=== PATIENT | male | born 1935 | race Caucasian/White ===

== ENCOUNTER 2017-08-24 04:23 | Inpatient (IN) | payer MEDICARE, OTHER ==
[~2017-08-24] VITALS: Ht 165.1 cm; Wt 74.6 kg
[2017-08-24] VITALS (18 sets, daily range): BP systolic 93–137; BP diastolic 52–80; BMI 29.9
--- NOTE | ~2017-08-24 | CN ---
PATIENT NAME:JENNIFER BRODERICK MEDICAL RECORD: [id number] : 31 LOCATION:[facility].2313 ADMIT DATE: 08/24/17 ACCOUNT: [id number] CONSULTING PHYSICIAN: ISRAEL CORDERO MD REFERRING PHYSICIAN: ANDI SUN DO DATE OF CONSULTATION: 08/24/2017 DIAGNOSES: 1. Non-Q-wave myocardial infarction. 2. Coronary artery disease. 3. Respiratory failure. 4. Pneumonia. 5. Chronic obstructive pulmonary disease. HISTORY OF PRESENT ILLNESS: Mr. Broderick presents with shortness of breath, dyspnea on exertion, found to have bilateral infiltrates. He does have a history of COPD. He has no cardiac history. His troponin was elevated at 0.47. Echocardiogram revealed cardiomyopathy, ejection fraction in the 40% range. PHYSICAL EXAMINATION: GENERAL APPEARANCE: Well-nourished, well-developed, appears stated age. Level of distress, comfortable. PSYCHIATRIC: Mental status, alert, normal affect. Orientation, oriented to time, place and person. EYES: Lids and conjunctiva, noninjected. No discharge, no pallor. ENT: Lips, teeth, gums, normal dentition. Oropharynx, no cyanosis, no pallor. NECK: Carotid arteries, bilateral normal upstroke, no bruits, no thrills. JUGULAR VEINS: No jugular venous pressure or distention. CERVICAL LYMPH NODES: Nontender, nonenlarged. THYROID: Not enlarged. Nontender. No nodules. LUNGS: Respiratory effort, unlabored. CHEST: Normal curvature. No thoracic deformity. No chest wall tenderness. Percussion, resonant. Auscultation, clear. No wheezes, no rales, no rhonchi. CARDIOVASCULAR: Precordial exam, nondisplaced. No heaves or pericardial thrills. Rate and rhythm, regular. Heart sounds, normal S1, normal S2. No S3, no gallop, no rub. Systolic murmur, not heard. Diastolic murmur, not heard. EXTREMITIES: No cyanosis, no edema. Peripheral pulses, full and equal in all extremities, except as noted. No bruits appreciated. ABDOMEN: Soft, nondistended. Normal aorta. No bruit. Nontender. No masses. Liver, nontender, no hepatomegaly. Spleen, nontender, no splenomegaly. MUSCULOSKELETAL: No joint tenderness. No joint swelling. No erythema. NEUROLOGICAL: Normal gait, normal strength, normal tone. SKIN: Warm and dry. OVERALL IMPRESSION: Non-Q-wave myocardial infarction with a cardiomyopathy, most likely he has hemodynamically significant coronary artery disease. We will proceed with coronary angiography, but only after stabilized from respiratory standpoint. We will start Bystolic, Pravachol, aspirin, and Plavix at this point to treat medically for the myocardial infarction. TRANSINT:[id number] Voice Confirmation ID: [id number] DOCUMENT ID: [id number] CONSULT REPORT [id number] JENNIFER BRODERICK JEFFREY MD at 1006 CC: [id number] DICTATION DATE: 08/24/17 1201 FLAME ANNEALING MACHINE SETTER: 08/24/17 1212 ADM IN [facility] [address] [place] [address]
--- NOTE | ~2017-08-24 | OP ---
PATIENT NAME: JENNIFER BRODERICK MEDICAL RECORD: [id number] :31 LOCATION:.[facility] D.2313 ADMISSION DATE:08/24/17 SURGEON: ISRAEL CORDERO MD DATE OF OPERATION: 08/26/2017 PROCEDURES: 1. PTCA stent LAD. 2. Left heart catheterization. 3. Selective coronary angiography. 4. Left ventriculogram. INDICATION: Angina and coronary artery disease. PROCEDURE IN DETAIL: After informed consent was obtained and after detailed explanation of risks, benefits as well as alternative therapies, the patient elected to proceed with angiogram and angioplasty. The right radial area was prepped and draped in normal sterile fashion. Right radial artery was cannulated via modified Seldinger technique with placement of 6-Uruguayan sheath. FINDINGS: The left ventriculogram was performed in standard 30-degree STEVE view, reveals good cardiac wall motion throughout all segments. Overall ejection fraction is estimated at 60%. SELECTIVE CORONARY ANGIOGRAPHY: 1. Left main has no significant angiographic disease. 2. Left anterior descending has long area of 80% stenosis throughout the mid vessel. 3. Left circumflex has moderate diffuse disease, but no discrete flow-limiting stenosis. 4. Right coronary has a long area of 90+ percent stenosis throughout the mid. PTCA STENT OF THE LAD: The stent used was a 2.25 x 38 mm Sotero. Result was 0% residual stenosis. OVERALL IMPRESSION: Successful percutaneous transluminal angioplasty stent of the left anterior descending going from 80+ percent initial stenosis to 0% residual. PLAN: For PTCA stent of the RCA in the near future. TRANSINT:[id number] Voice Confirmation ID: [id number] DOCUMENT ID: [id number] ISRAEL CORDERO MD at 1006 CC: [id number] DICTATION DATE: 08/26/17 1559 DEVELOPMENT ADMINISTRATOR: 08/26/17 1620 ADM IN [place] [id number] [place] [address]
--- NOTE | ~2017-08-24 | HEMODYNAMI ---
PATIENT:JENNIFER BRODERICK MEDICAL RECORD: [id number] : 31 LOC[id number] ADMISSION DATE: 08/24/17 Generatedon:08/26/201716:04 Patient name: JENNIFER BRODERICK Patient #: [id number] SSN: : Date of study: 08/26/2017 Page: Of Hemodynamic Procedure Report Patient Data Patient Demographics Procedure consent was obtained First Name: JENNIFER Gender: Male Last Name: DAVIE : 1935 Patient #: [id number] Age: 81 year(s) Race: Unknown Additional ID: [id number] Contact details [address]: [address] [place] [address] State: [place] City: [place] Zip code: [address] Admission Admission Data Admission Date: 08/24/2017 Admission Time: 6:54 Room #: D.2313 Height (in.): 64.96 BSA: 1.86 (m2) Height (cm.): 165 BMI: 29.02 (kg/m2) Weight (lbs.): 174.17 Weight (kg.): 79 Lab Results Lab Result Date: 08/26/2017 Lab Result Time: 0:00 Biochemistry Name Units Result Min Max BUN mg/dl 29 --(----)-* 7 18 Creatinine mg/dl 1.2 --(---*)-- 0.6 1.3 CBC Name Units Result Min Max Hemoglobin g/dl 10.3 *-(----)-- 13.5 17.5 Procedure Procedure Types Cath Procedure Diagnostic Procedure LHC LHC w/Coronaries Sedation Charges Moderate Sedation up to 15 minutes PCI Procedure Coronary Stent Coronary Stent Initial Procedure Description Procedure Date Procedure Date: 08/26/2017 Procedure Start Time: 15:39 Procedure End Time: 15:57 Procedure Staff Name Function Dwayne Morales MD Performing Physician Britney Duncan RT Monitor Zoë Gonzales RT Scrub Dieter Jeffries RN Nurse Nichole Rodriguez RN Nurse Procedure Data Cath Procedure Fluoroscopy Diagnostic fluoroscopy Total fluoroscopy Time: 4.1 time: 4.1 min min Diagnostic fluoroscopy Total fluoroscopy dose: 351 dose: 351 mGy mGy Contrast Material Contrast Material Type Amount (ml) Isovue 300 73 Entry Location Entry Primary Successful Side Size Upsize Upsize Entry Closure Rachel ccessful Closure Location (Fr) 1 (Fr) 2 (Fr) Remarks Device Remarks Radial Right 6 Fr Mechanical artery Short Compression Estimated blood loss: 5 ml Diagnostic catheters Device Type Used For End Catheter Placement DIAGNOSTIC [place] 110cm 5 Multi-vessel Fr catheter ([id number]) Angiography Procedure Complications No complications Procedure Medications Medication Administration Route Dosage Oxygen etCO2 Nasal cannula 2 l/min Heparin Flush Bag added to field 2 bags (1000units/500ml NS) 0.9% NaCl I.V. 100 ml/hr Radial Cocktail added to field 1 syringe (Verapomil 2mg/Nitro 400mcg/Heparin 1500units) Fentanyl I.V. 50 mcg Versed I.V. 1 mg Fentanyl I.V. 50 mcg Versed I.V. 1 mg Heparin Bolus I.V. 4000 units Plavix P.O. 75 mg Hemodynamics Rest BSA: 1.86 (m2) O2 Consumption: Estimated: 231.85 (ml/min) O2 Consumption indexed : Estimated:124.65 (ml/min/m) Heart Rate: 99 (bpm) Pressure Samples Time Site Value (mmHg) Purpose Heart Use Rate(bpm) 15:44 LV 2/2,-29 Snapshot 46 Snapshots Pre Cath Intra NCS Post Cath Vital Signs Time Heart Resp SPO2 etCO2 NIBP Rhythm Pain Sedation Rate (ipm) (%) (mmHg) (mmHg) Status Level (bpm) 15:28:42 89 16 0 113/83(91) NSR 0 (11) 10(A) , No pain 15:32:46 82 17 90 0 97/65(79) NSR 0 (11) 10(A) , No pain 15:36:54 88 17 91 0 92/60(76) NSR 0 (11) 10(A) , No pain 15:41:00 91 17 92 0 89/60(77) NSR 0 (11) 9(A) , No pain 15:45:06 94 16 91 0 79/55(69) NSR 0 (11) 9(A) , No pain 15:49:05 104 16 90 0 80/57(69) NSR 0 (11) 9(A) , No pain 15:53:46 109 16 92 0 118/74(94) NSR 0 (11) 9(A) , No pain 15:57:52 96 16 91 0 112/71(92) NSR 0 (11) 10(A) , No pain Medications Time Medication Route Dose Verified Delivered Reason Not es Effectiveness by by 15:24:02 Oxygen etCO2 2 l/min Dwayne Garcias Per physician Nasal Andrew Jeffries RN cannula 15:24:12 Heparin Flush added 2 bags Dwayne Garcias used for Bag to Andrew Jeffries RN procedure (1000units/500ml field NS) 15:24:22 0.9% NaCl I.V. 100 Dwayne Garcias Per physician ml/hr Andrew Jeffries RN 15:24:33 Radial Cocktail added 1 Dwayne Garcias used for (Verapomil to syringe Andrew Jeffries RN procedure 2mg/Nitro field 400mcg/Heparin 1500units) 15:40:22 Fentanyl I.V. 50 mcg Dwayne Garcias for sedation Andrew Jeffries RN 15:40:29 Versed I.V. 1 mg Dwayne Garcias for sedation Andrew Jeffries RN 15:51:11 Fentanyl I.V. 50 mcg Dwayne Garcias for sedation Andrew Jeffries RN 15:51:16 Versed I.V. 1 mg Dwayne Garcias for sedation Andrew Jeffries RN 15:51:25 Heparin Bolus I.V. 4000 Dwayne Garcias for units Andrew Jeffries RN anticoagulation 15:55:55 Plavix P.O. 75 mg Dwayne Garcias for Andrew Jeffries RN antiplatelet therapy Procedure Log Time Note 14:53:55 Patient Height : 64.96 inches 14:53:58 Patient Weight : 174.17 lbs 14:54:34 Lab Result : Hemoglobin 10.3 g/dl 14:54:34 Lab Result : Creatinine 1.2 mg/dl 14:54:34 Lab Result : BUN 29 mg/dl 14:55:35 Diagnostic Cath status Elective 14:55:37 Britney CROW(R) sent for patient. Start room use. 14:55:38 Time tracking: Regular hours (M-F 7:00 - 5:00) 14:55:43 Plan of Care:Hemodynamics will remain stable., Cardiac rhythm will remain stable., Comfort level will be maintained., Respiratory function will remain adequate., Patient/ family verbilizes understanding of procedure., Procedure tolerated without complication., Recovers from procedure without complications.. 15:24:02 Oxygen 2 l/min etCO2 Nasal cannula was administered by Dieter Jeffries RN; Per physician; 15:24:12 Heparin Flush Bag (1000units/500ml NS) 2 bags added to field was administered by Dieter Jeffries RN; used for procedure; 15:24:22 0.9% NaCl 100 ml/hr I.V. was administered by Dieter Jeffries RN; Per physician; 15:24:33 Radial Cocktail (Verapomil 2mg/Nitro 400mcg/Heparin 1500units) 1 syringe added to field was administered by Dieter Jeffries RN; used for procedure; 15:27:17 Vital chart was started 15:34:34 Patient received from ICU to [facility] 3 Alert and oriented. Tansferred to table in Supine position. 15:34:35 Warm blankets applied, and henok hugger turned on for patient comfort. 15:34:36 Correct patient and procedure confirmed by team. 15:34:37 Signed procedure consent form obtained from patient. 15:34:38 ECG and BP/O2 sat monitors applied to patient. 15:34:45 Rhythm: sinus rhythm 15:34:46 Full Disclosure recording started 15:34:53 H&P Date Dictated: 08/26/2017 New H&P dictated by physician.. 15:34:54 Pre-procedure instructions explained to patient. 15:34:55 Pre-op teaching completed and patient verbalized understanding. 15:37:20 Family in waiting room. 15:37:21 Patient NPO since Midnight. 15:37:24 Is the patient allergic to Iodine/contrast media? No. 15:37:25 Was the patient premedicated? No 15:37:26 Is patient on blood thinner?Yes 15:37:30 ACC The patient was administered the following blood thiners within the last 24 hours: ACCPlavix 15:37:32 Patient diabetic? No. 15:37:35 Previous problem with sedation/anesthesia? No ? 15:37:37 Snore? Yes 15:37:38 Sleep apnea? Yes 15:37:39 Deviated septum? No 15:37:41 Opens mouth fully? Yes 15:37:42 Sticks out tongue? Yes 15:37:57 Airway obstruction? Yes pneumonia 15:38:00 Dentures? No ? 15:38:03 Pre procedure: right dorsailis pedis pulse 1+ Palpable, but thready & weak; easily obliterated 15:38:05 Pre procedure: left dorsailis pedis pulse 1+ Palpable, but thready & weak; easily obliterated 15:38:07 Patient pain scale 0/10 ?. 15:38:14 IV patent on arrival in left forearm with 0.9% NaCl at [facility]. 15:38:28 Lab results completed and on chart. 15:38:32 Right Radial & Right Groin area was prepped with chlora-prep and draped in sterile fashion 15:38:33 Alarms reviewed by R. N. 15:38:33 Sharps counted by scrub and verified by R.N. 15:38:35 Physician arrived 15:38:36 --------ALL STOP TIME OUT------ 15:38:36 Final Timeout: patient, procedure, and site verified with staff and physician. All members of the team are in agreement. 15:38:38 Right Radial & Right Groin site verified by team. 15:38:40 Physical assessment completed. ASA score P 2 - A patient with mild systemic disease as per Dwayne Morales MD. 15:38:43 Sedation plan: IV Moderate Sedation Medication:Versed, Fentanyl 15:38:48 Use device set Radial Dx or PCI 15:38:49 ACIST Syringe (26782) opened to sterile field. 15:38:50 Medline Cath Pack ([id number]) opened to sterile field. 15:38:50 Bag Decanter () opened to sterile field. 15:38:50 DIAGNOSTIC WIRE .035 260cm J wire (416751) opened to sterile field. 15:38:51 ACIST Hand Control (73103) opened to sterile field. 15:38:51 ACIST Manifold (34683) opened to sterile field. 15:38:52 Tegaderm 4 x 4 (1626W) opened to sterile field. 15:38:52 MBrace Wrist Support ([id number]) opened to sterile field. 15:38:53 SHEATH 6Fr Prelude Radial ([id number]) opened to sterile field. 15:38:58 Procedure started. 15:39:02 Local anesthetic to right radial artery with Lidocaine 2% by Dwayne Morales MD.INITIAL ACCESS ONLY 15:39:15 A 6 Fr Short sheath was inserted into the Right Radial artery 15:40:22 Fentanyl 50 mcg I.V. was administered by Dieter Jeffries RN; for sedation; 15:40:29 Versed 1 mg I.V. was administered by Dieter Jeffries RN; for sedation; 15:42:51 Baseline sample Acquired. 15:42:56 Zero performed for pressure channel P1 15:44:14 A DIAGNOSTIC [place] 110cm 5 Fr catheter ([id number]) was advanced over the wire and used for Multi-vessel Angiography. 15:44:49 LV hemodynamics recorded. 15:44:50 LV gram done using STEEV 15:44:53 Injector settings: Ml/sec: 5, Volume: 15, 15:45:06 EF : 55 % 15:45:17 RCA angiography performed. 15:45:21 Injector settings: Ml/sec: 3, Volume: 6, 15:46:03 Catheter removed. 15:46:12 GUIDE 6FR XBLAD 3.5 catheter ([id number]) opened to sterile field. 15:47:31 LCA angiography performed. 15:47:34 Injector settings: Ml/sec: 3, Volume: 6, 15:50:24 Catheter removed. 15:50:57 INFLATOR Merit BasixCompak (BJ0191) opened to sterile field. 15:50:58 CHOICE PT Extra Support 182cm wire ([id number]) opened to sterile field. 15:51:11 Fentanyl 50 mcg I.V. was administered by Dieter Jeffries RN; for sedation; 15:51:16 Versed 1 mg I.V. was administered by Dieter Jeffries RN; for sedation; 15:51:25 Heparin Bolus 4000 units I.V. was administered by Dieter Jeffries RN; for anticoagulation; 15:52:15 Proceeding to intervention. 15:52:25 choice pt wire advanced. 15:52:27 Wire advanced across lesion. 15:53:44 Place stent Inflation Number: 1 A JHON RX 2.25 x 38 stent ([id number]) was prepped and advanced across the Mid LAD. The stent was deployed at 14 RADHA for 0:10 (min:sec). 15:54:06 Stent catheter was removed intact over wire. 15:54:08 Wire removed. 15:54:08 Guide catheter removed. 15:55:09 TR BAND Standard ([id number]) opened to sterile field. 15:55:27 Sheath removed intact; hemostasis achieved with Mechanical Compression to the Right Radial artery. 15:55:29 Procedure ended.(Physican Out) 15:55:40 Fluoroscopy time 04.10 minutes. 15:55:45 Fluoroscopy dose: 351 mGy 15:55:45 Flurop Dose total: 351 15:55:55 Plavix 75 mg P.O. was administered by Dieter Jeffries RN; for antiplatelet therapy; 15:56:15 Contrast amount:Isovue 300 73ml. 15:56:17 Sharps counted by scrub and verified by R.N. 15:56:18 Insertion/operative site no bleeding no hematoma. 15:56:24 Post right radial artery:stable 15:56:26 Post Procedure Pulses reassessed and unchanged 15:56:29 Post procedure rhythm: unchanged. 15:56:35 Estimated blood loss: 5 ml 15:56:43 Post procedure instruction explained to patient.Patient verbalizes understanding. 15:56:44 Patient needs reinforcement of post procedure teaching. 15:57:08 Procedure type changed to Cath procedure, Diagnostic procedure, LHC, LHC w/Coronaries, Sedation Charges, Moderate Sedation up to 15 minutes, PCI procedure, Coronary Stent, Coronary Stent Initial 15:57:09 Procedure and supply charges have been captured, reviewed, submitted and are correct. 15:57:13 Procedure Complication : No complications 15:57:15 Vital chart was stopped 15:57:16 See physician's report for complete and final results. 15:57:53 Report given to ICU. 15:57:56 Patient transfered to ICU with Stretcher. 15:57:58 Procedure ended. 15:57:58 Full Disclosure recording stopped 15:58:31 ACC-PCI Only Patient was given prescriptions, or instructed by Dwayne Morales MD to start/continue the following medications upon discharge: Plavix 15:58:33 End room use (Document Last) Intervention Summary Intervention Notes Time ActionType Lesion and Equipment Used Action# Pressure Duration Attributes 15:53:44 Place stent Mid LAD JHON RX 2.25 x 1 14 00:10 38 stent ([id number]) Device Usage Item Name Manufacture Quantity Catalog Number Hospital Part Current Minimal Lot# / Charge Number Stock Stock Serial# Code ACIST Syringe Acist 1 55901 542377 238887 197407 20 (89984) Medical Systems Inc Medline Cath Cardinal 1 [id number] 231422 52204 993846 5 Pack Health ([id number]) Bag Decanter Microtek 1 2001S 704051 05771 692355 5 (2001S) Medical Inc. DIAGNOSTIC WIRE [address] [place] 1 918519 981876 539060 318865 30 .035 260cm J wire (021944) ACIST Hand Acist 1 24623 707655 574049 187217 5 Control (64016) Medical Systems Inc ACIST Manifold Acist 1 72857 127463 882353 485719 5 (19429) Medical Systems Inc Tegaderm 4 x 4 3M 1 1626W 518986 341258 322237 5 (1626W) MBrace Wrist Advanced 1 140-0250-00 334116 19185 397407 5 Support Vascular ([id number]) Dynamics SHEATH 6Fr Merit 1 [id number] 578021 508135 514260 5 Prelude Radial Medical ([id number]) DIAGNOSTIC Terumo 1 40-4583 516531 999874 024146 5 [place] 110cm 5 Fr catheter (848857) GUIDE 6FR XBLAD Cardinal 1 [id number] 174268 528475 083233 10 3.5 catheter Health (54001749) INFLATOR Merit Merit 1 [id number] 452815 011661 721317 [address] Medical (IT5353) CHOICE PT Extra [place] 1 [id number] 870354 378808 575902 5 Support 182cm Scientific wire ([id number]) JHON RX 2.25 x Medtronic 1 [id number] 182781 4116232 068491 5 [id number] 38 stent ([id number]) TR BAND Terumo 1 [id number] 769103 952633 756822 40 Standard ([id number]) Signature Audit [place] Stage Time Signature Unsigned Intra-Procedure 08/26/2017 Zoë Gonzales 4:04:43 PM RT(R) Signatures Monitor : Britney Duncan Signature : RT Date : Time : [facility] [address] [place] [address]
--- NOTE | ~2017-08-24 | EC ---
PATIENT:JENNIFER BRODERICK DATE OF SERVICE: 08/24/17 SEX: M MEDICAL RECORD: [id number] DATE OF : 31 LOCATION:[facility] AGE OF PATIENT: 81 ADMISSION DATE: 08/24/17 REFERRING PHYSICIAN: INTERPRETING PHYSICIAN: ISRAEL MORALES MD ECHOCARDIOGRAM REPORT ECHO CHARGES 4 ECHO COMPLETE Date: 08/24 CLINICAL DIAGNOSIS: SOB/ELEVATED TROPONIN ECHOCARDIOGRAPHIC MEASUREMENTS (adult normal given) AC root (d.<3.7cm) 3.1 cm LV Septum d (<1.2 cm> 1.3 cm Valve Excursion 1.1 cm LV Septum (systole) 1.7 cm Left Atria (s.<4.0cm> 3.9 cm LVPW d(<1.2cm) 1.3 cm RV (d.<2.3cm) 2.5 cm LVPW (sytole) 2.0 cm LV diastole(<5.6CM) 6.9 cm MV E-F(>70mm/sec) cm LV systole 5.0 cm LVOT Diameter 1.8 cm MV exc.(>10mm) cm Est.ejection fraction (50-75%) % DOPPLER: LVIT cm/sec A 43.0 cm/sec E 119 cm/sec LA cm/sec RVSP 48.2 mmHg LVOT 95.0 cm/sec AOP1/2T m/s Asc. Ao 200 cm/sec RVOT 73.0 cm/sec RA cm/sec PA 103 cm/sec AV Gradient Peak 16.0 mmHg AV Mean 8.0 mmHg AV Area 1.1 cm MV Gradient Peak 6.7 mmHg MV Mean 2.1 mmHg MV Area cm COMMENTS: Insulation Professional: Amy LEVYOE Tax Adjuster: 1 Dr. Morales TAPE# PACS Pericardial Effusion Y DATE OF SERVICE: Echocardiogram FINDINGS: 1. Left ventricular chamber size is mildly dilated. Left ventricular systolic function is mildly reduced. Overall ejection fraction 40%. 2. Left atrium is within normal limits at 3.9 cm. Right atrium and right ventricular chamber sizes are mildly dilated. 3. Valvular structures have normal structure and motion. ECHOCARDIOGRAM REPORT [id number] JENNIFER BRODERICK 4. Doppler interrogation reveals moderate mitral regurgitation, moderate tricuspid regurgitation, no other valvular insufficiency or stenosis. Pulmonary systolic pressure is estimated at 48 mmHg. 5. There is a small pericardial effusion present. This is not hemodynamically significant. No evidence for left ventricular thrombus. TRANSINT:[id number] Voice Confirmation ID: [id number] DOCUMENT ID: [id number] ISRAEL MORALES MD at 1006 CC: [id number] DICTATION DATE: 08/24/17 1221 GAS FITTER APPRENTICE: 08/24/17 1258 ADM IN [place] [id number] [place] [id number]
--- NOTE | ~2017-08-24 | CN ---
PATIENT NAME:JENNIFER BRODERICK MEDICAL RECORD: [id number] : 31 LOCATION:[id number] ADMIT DATE: 08/24/17 ACCOUNT: [id number] CONSULTING PHYSICIAN: KELSEY SHORE MD REFERRING PHYSICIAN: ANDI SUN DO DATE OF CONSULTATION: 08/24/2017 Pulmonary Consultation CONSULT REQUESTING PHYSICIAN: Andi Sun DO REASON FOR CONSULTATION: Acute hypoxic respiratory failure, pulmonary edema. HISTORY OF PRESENT ILLNESS: Mr. Broderick is an 81-year-old gentleman who came into the ER with worsening shortness of breath. He was coughing and wheezing. There were no fever or chills. Workup showed that he has bilateral infiltrate and pulmonary edema. There was elevated troponin. REVIEW OF SYSTEMS: HEENT: There is no sinus congestion. RESPIRATORY: As in history of present illness. CARDIOVASCULAR: He has chest discomfort. GASTROINTESTINAL: Negative. GENITOURINARY: Negative. Other review of the system is negative. PAST MEDICAL HISTORY: 1. COPD. 2. Obstructive sleep apnea. 3. Chronic hypoxic respiratory failure. ALLERGIES: HE IS ALLERGIC TO NAPROXEN. MEDICATIONS: Signal Patternstech is reviewed. PERSONAL AND SOCIAL HISTORY: The patient is an ex-smoker. He is a nondrinker. FAMILY HISTORY: Noncontributory. PHYSICAL EXAMINATION: GENERAL: Now, the patient is lying comfortably in bed. He is not in acute distress. VITAL SIGNS: The blood pressure is 122/61, pulse is 99, respiration is 11, temperature is 97.7, SpO2 is 99% on 70% BiPAP. HEENT: Conjunctivae are pink. Sclerae are not icteric. NECK: Supple, no JVD. CHEST: There are bilateral crackles, wheeze on forceful expiration. HEART: Rhythm regular, normal sound, no murmur. ABDOMEN: Soft, bowel sounds present. No hepatosplenomegaly. RECTAL: Deferred. EXTREMITIES: No cyanosis, no clubbing. There is 1+ pedal edema. SKIN: Warm, normal turgor. CENTRAL NERVOUS SYSTEM: The patient is awake and alert. There are no obvious cranial nerve abnormality. The gait was not tested. CONSULT REPORT [id number] JENNIFER BRODERICK CHEST RADIOGRAPH: There is bilateral increased interstitial marking and infiltrate. OTHER LABORATORY DATA: CBC: WBC is 13.4, hemoglobin 10.3, hematocrit 35.4, platelet count is 344. ABG: pH is 7.11, pCO2 is 94.6, PO2 48, bicarb 30.2. Chemistry: Sodium 140, potassium is 4, BUN is 22, creatinine 1.1. Troponin is 1.99. The proBNP is 724. IMPRESSION: 1. Waksg-ym-uzzfigg hypoxic hypercapnic respiratory failure. 2. Respiratory acidosis. 3. Acute non-Q-wave myocardial infarction. 4. Pulmonary edema. 5. Pneumonia, bilateral, most likely community-acquired pneumonia and acute exacerbation of chronic obstructive pulmonary disease. 6. Congestive heart failure with systolic dysfunction, ejection fraction of 48%. 7. Secondary pulmonary hypertension. 8. Obstructive sleep apnea. RECOMMENDATION: 1. Supplemental oxygen and BiPAP as required. 2. Albuterol ipratropium nebulizer. Start Brovana and budesonide nebulizer. 3. Methylprednisolone IV. 4. Continue Levaquin and Rocephin. 5. Start on Lasix. Discussed with Dr. Morales when the patient's pulmonary status is stable, he will proceed with cardiac catheterization. Dr. Sun, thank you for involving me in the care of Mr. Broderick. The critical care time is 45 minutes. TRANSINT:[id number] Voice Confirmation ID: [id number] DOCUMENT ID: [id number] KELSEY SHORE MD at 1208 CC: ANDI SUN [id number] DICTATION DATE: 08/24/17 1425 SENIOR TECHNICAL MANAGER: 08/24/17 1449 DIS IN 09/03/17 [id number] [place] [address]
--- NOTE | ~2017-08-24 | EC ---
PATIENT:JENNIFER BRODERICK DATE OF SERVICE: 08/24/17 SEX: M MEDICAL RECORD: [id number] DATE OF : 31 LOCATION:[facility] D230 AGE OF PATIENT: 82 ADMISSION DATE: 08/24/17 REFERRING PHYSICIAN: INTERPRETING PHYSICIAN: ISRAEL MORALES MD ECHOCARDIOGRAM REPORT ECHO CHARGES 5 ECHO LIMITED Date: 09/02 1 DOPPLER ECHO COLOR FLOW 2 DOPPLER ECHO PULSE CLINICAL DIAGNOSIS: HYPOTENSION ECHOCARDIOGRAPHIC MEASUREMENTS (adult normal given) AC root (d.<3.7cm) 0 cm LV Septum d (<1.2 cm> 0 cm Valve Excursion 0 cm LV Septum (systole) 0 cm Left Atria (s.<4.0cm> 0 cm LVPW d(<1.2cm) 0 cm RV (d.<2.3cm) 0 cm LVPW (sytole) 0 cm LV diastole(<5.6CM) 0 cm MV E-F(>70mm/sec) 0 cm LV systole 0 cm LVOT Diameter 0 cm MV exc.(>10mm) 0 cm Est.ejection fraction (50-75%) 0 % DOPPLER: LVIT 0 cm/sec A 0 cm/sec E 0 cm/sec LA 0 cm/sec RVSP 35.2 mmHg LVOT 0 cm/sec AOP1/2T 0 m/s Asc. Ao 0 cm/sec RVOT 0 cm/sec RA 0 cm/sec PA 0 cm/sec AV Gradient Peak 0 mmHg AV Mean 0 mmHg AV Area 0 cm MV Gradient Peak 0 mmHg MV Mean 0 mmHg MV Area 0 cm COMMENTS: LIMITED STUDY (2-D,COLOR,DOPPLER) COMPLETE ECHO DONE ON 08/24/17 Manager Gift: Amy SOTO Master Ocean: 1 Dr. Morales TAPE# PACS Pericardial Effusion Y DATE OF SERVICE: 09/02/2017 PROCEDURE: Limited echo for ejection fraction. FINDINGS: 1. Left ventricular chamber size is within normal limits. Left ventricular systolic function is normal. Overall ejection fraction estimated at 55%. 2. Left atrium, right atrium, and right ventricular chamber sizes are within normal limits. 3. Valvular structures have normal structure and motion. ECHOCARDIOGRAM REPORT [id number] JENNIFER BRODERICK 4. Doppler interrogation reveals mild mitral regurgitation, mild tricuspid regurgitation. No other valvular insufficiency or stenosis. Pulmonary systolic pressure is estimated 35 mmHg. 5. Trace pericardial effusion is present. This is not hemodynamically significant. TRANSINT:[id number] Voice Confirmation ID: [id number] DOCUMENT ID: [id number] ISRAEL MORALES MD at 1848 CC: [id number] DICTATION DATE: 09/04/17 1004 EXPRESSIVE ART THERAPIST: 09/04/17 1508 DIS IN 09/03/17 [id number] [place] [id number]
--- NOTE | ~2017-08-24 | HP ---
PATIENT: JENNIFER BRODERICK MEDICAL RECORD: [id number] ACCOUNT: [id number] LOCATION:[facility] D.2313 : 33 ADMISSION DATE: 08/24/17 HISTORY AND PHYSICAL EXAMINATION HISTORY OF PRESENT ILLNESS: An 81-year-old male, presented to the Emergency Room with shortness of breath. He has had progressive symptoms over the past week. PAST MEDICAL HISTORY: History of unknown, heart disease, COPD, obstructive sleep apnea, wears oxygen 24/. CURRENT MEDICATIONS: Listed as Lasix 20 mg daily, guaifenesin 400 mg, unknown nebulizers or inhalers. SOCIAL HISTORY: He is [facility], does not have a local physician. In talking to the patient and his daughter, he is a FULL CODE. REVIEW OF SYSTEMS: GENERAL: No known change in weight. HEENT: No cephalgia, visual changes, tinnitus, epistaxis, or dysphagia. CARDIOVASCULAR: Progressive shortness of breath over the past week, much worse this morning. PULMONARY: Denies hemoptysis. Again, admits worsening shortness of breath, has history of sleep apnea and supplemental oxygen dependence, COPD. GASTROINTESTINAL: Denies hematemesis, hematochezia, or melena. Admits chronic abdominal distention. GENITOURINARY: Denies dysuria. MUSCULOSKELETAL: No acute changes, limited ambulation. ENDOCRINE: Denies polyuria, polydipsia, or polyphagia. PHYSICAL EXAMINATION: VITAL SIGNS: Temperature 98.2, blood pressure is 181/95, heart rate 110, respirations 32, O2 sats 93.6% with nonrebreather. HEENT: Normocephalic, atraumatic. Eyes: Pupils equal, round, reactive to light and accommodation. Extraocular muscles intact. Conjunctivae is not injected. Ears: Canals patent, TMs are intact. Nose: Nares patent without drainage. Throat: No erythema, no exudates. NECK: Supple. No lymphadenopathy, no JVD. HEART: Regular, tachycardic. LUNGS: Diminished breath sounds bilaterally. ABDOMEN: Distended, hypoactive bowel sounds. EXTREMITIES: Present times 4. Mild edema. NEUROLOGIC: No appreciable focal deficits. EKG accelerated junctional rhythm, lateral ST depression. IMAGING: Chest x-ray reported verbally by ER physician as pneumonia, I believe it to be more related to congestive heart failure based on clinical course. LABORATORY DATA: CK is 66, CK-MB is 4.6, troponin is 0.425. ABG shows a pH of 7.344, pCO2 of 48.8, pO2 of 74. Hemoglobin 10.1, hematocrit 30. Potassium 4.0. CBC: White count 13.4, hemoglobin 10.3, hematocrit 35.4, platelets 344, neutrophils 61. BUN 22, creatinine 1.1. D-dimer 0.54. HISTORY AND PHYSICAL [id number] JENNIFER BRODERICK ASSESSMENT AND PLAN: 1. Acute hypoxemia, shortness of breath, leave acute myocardial infarction. 2. Exacerbation of chronic obstructive pulmonary disease. 3. Signs and symptoms of cardiomyopathy, chronic. 4. Likely ascites of unknown etiology. PLAN: 1. Cardiology consulted, echo pending. 2. With the hypoxemia, pulmonology is consulted. Concern for pending respiratory failure. Supportive care. TRANSINT:[id number] Voice Confirmation ID: [id number] DOCUMENT ID: [id number] ANDI SUN DO at 0741 CC: [id number] DICTATION DATE: 08/24/1743 CIGAR HEAD PUNCHER: 08/24/17 1032 ADM IN [facility] [address] [id number]
--- NOTE | ~2017-08-24 | OP ---
PATIENT NAME: JENNIFER BRODERICK MEDICAL RECORD: [id number] :31 LOCATION:D.[facility] D.2313 ADMISSION DATE:08/24/17 SURGEON: ISRAEL CORDERO MD DATE OF OPERATION: 08/28/2017 PROCEDURES: 1. PTCA and stent of RCA. 2. Selective coronary angiography. INDICATION: Angina and coronary artery disease. PROCEDURE IN DETAIL: After informed consent was obtained and after detailed explanation of the risks, benefits as well as alternative therapies, the patient elected to proceed with CT angiogram and angioplasty. The right femoral area was prepped and draped in normal sterile fashion. Right femoral artery was cannulated via modified Seldinger technique with placement of 6-[place] sheath. All catheter exchanges through this sheath. FINDINGS: The right coronary has 99% stenosis throughout the mid vessel. This was addressed with a 2.5 x 38 and 2.5 x 18, both Sotero stents. Result was 0% residual stenosis. OVERALL IMPRESSION: Successful PTCA and stent of the RCA going from 99% initial stenosis to 0% residual stenosis. TRANSINT:[id number] Voice Confirmation ID: [id number] DOCUMENT ID: [id number] ISRAEL CORDERO MD at 1730 CC: [id number] DICTATION DATE: 08/28/17 1529 SUSPENDER CUTTER: 08/28/17 1603 ADM IN [id number] [place] [address]
--- NOTE | ~2017-08-24 | HEMODYNAMI ---
PATIENT:JENNIFER BRODERICK MEDICAL RECORD: [id number] : 31 LOCATION:[facility] D.2313 ADMISSION DATE: 08/24/17 Generatedon:08/28/201715:37 Patient name: JENNIFER BRODERICK Patient #: [id number] SSN: : Date of study: 08/28/2017 Page: Of Hemodynamic Procedure Report Patient Data Patient Demographics Procedure consent was obtained First Name: JENNIFER Gender: Male Last Name: DAVIE : 1935 Patient #: [id number] Age: 82 year(s) Race: Unknown Additional ID: [id number] Contact details Address: [address] [place] [address] State: [place] City: [place] Zip code: [address] Admission Admission Data Admission Date: 08/24/2017 Admission Time: 6:54 Room #: D.2313 Lab Results Lab Result Date: 08/26/2017 Lab Result Time: 0:00 Biochemistry Name Units Result Min Max BUN mg/dl 29 --(----)-* 7 18 Creatinine mg/dl 1.2 --(---*)-- 0.6 1.3 CBC Name Units Result Min Max Hemoglobin g/dl 10.3 *-(----)-- 13.5 17.5 Procedure Procedure Types Cath Procedure Diagnostic Procedure Sedation Charges Moderate Sedation up to 15 minutes PCI Procedure Coronary Stent Coronary Stent Initial Procedure Description Procedure Date Procedure Date: 08/28/2017 Procedure Start Time: 15:04 Procedure End Time: 15:29 Procedure Staff Name Function Dwayne Morales MD Performing Physician Emanuel Crawford RT Monitor Mariel Mcdonnell RT Scrub Nichole Rodriguez RN Nurse Bro Ramirez RT Director Of Entertainment Procedure Data Cath Procedure Fluoroscopy Diagnostic fluoroscopy Total fluoroscopy Time: 9.1 time: 9.1 min min Diagnostic fluoroscopy Total fluoroscopy dose: 974 dose: 974 mGy mGy Contrast Material Contrast Material Type Amount (ml) Isovue 370 93 Entry Location Entry Primary Successful Side Size Upsize Upsize Entry Closure Succes sful Closure Location (Fr) 1 (Fr) 2 (Fr) Remarks Device Remarks Femoral Right 6 Fr Exoseal artery Short Estimated blood loss: 10 ml Procedure Complications No complications Procedure Medications Medication Administration Route Dosage Oxygen NC 4 l/min Lidocaine 2% added to field 20 Heparin Flush Bag added to field 2 bags (1000units/500ml NS) 0.9% NaCl I.V. 100 ml/hr Versed I.V. 1 mg Fentanyl I.V. 50 mcg Heparin Bolus I.V. 4000 units Versed I.V. 1 mg Fentanyl I.V. 50 mcg Hemodynamics Rest HGB: 10.3 (g/dl) Heart Rate: 115 (bpm) Snapshots Pre Cath Intra NCS Post Cath Vital Signs Time Heart Resp SPO2 etCO2 NIBP (mmHg) Rhythm Pain Sedation Rate (ipm) (%) (mmHg) Status Level (bpm) 14:46:14 102 19 78 27.8 131/89(112) A-Fib 0 (11) 10(A) , No pain 14:50:55 109 18 92 31.6 149/128(140) A-Fib 0 (11) 10(A) , No pain 14:55:40 101 15 92 0 58/43(50) A-Fib 0 (11) 10(A) , No pain 15:00:39 92 16 92 0 111/75(98) A-Fib 0 (11) 10(A) , No pain 15:05:15 99 18 91 8.2 116/70(110) A-Fib 0 (11) 10(A) , No pain 15:09:54 111 12 91 7.5 115/71(91) A-Fib 0 (11) 10(A) , No pain 15:14:30 104 19 92 0 111/70(92) A-Fib 0 (11) 10(A) , No pain 15:19:07 106 17 90 0 128/72(96) A-Fib 0 (11) 10(A) , No pain 15:23:41 109 16 92 0 110/76(92) A-Fib 0 (11) 10(A) , No pain 15:28:18 123 15 86 0 125/78(100) A-Fib 0 (11) 10(A) , No pain Medications Time Medication Route Dose Verified Delivered Reason Notes Effectiveness by by 14:48:59 Oxygen NC 4 Dwayne Varela used for l/min Andrew Rodriguez RN procedure 14:49:06 Lidocaine 2% added 20ml Dwayne Dwayne for local to vial Andrew Morales MD anesthetic field 14:49:13 Heparin Flush added 2 Dwayne Dwayne used for Bag to bags Andrew Morales MD procedure (1000units/500ml field NS) 15:03:38 0.9% NaCl I.V. 100 Dwayne Buffie Per physician ml/hr Andrew Rodriguez RN 15:03:49 Versed I.V. 1 mg Dwayne Buffie for sedation Andrew Rodriguez RN 15:03:55 Fentanyl I.V. 50 Dwayne Buffie for sedation mcg Andrew Rodriguez RN 15:07:58 Heparin Bolus I.V. 4000 Dwayne Buffie for verifi ed units Andrew Rodriguez RN anticoagulation with dr morales 15:13:41 Versed I.V. 1 mg Dwayne Buffie for sedation Andrew Rodriguez RN 15:13:44 Fentanyl I.V. 50 Dwayne Buffie for sedation mcg Andrew Rodriguez RN Procedure Log Time Note 14:28:54 Bro Ramirez RT(R) sent for patient. Start room use. 14:44:03 Time tracking: Regular hours (M-F 7:00 - 5:00) 14:44:08 Plan of Care:Hemodynamics will remain stable., Cardiac rhythm will remain stable., Comfort level will be maintained., Respiratory function will remain adequate., Patient/ family verbilizes understanding of procedure., Procedure tolerated without complication., Recovers from procedure without complications.. 14:44:14 Patient received from ICU to [facility] 1 Alert and oriented. Tansferred to table in Supine position. 14:44:16 Warm blankets applied, and henok hugger turned on for patient comfort. 14:44:16 Correct patient and procedure confirmed by team. 14:44:17 Signed procedure consent form obtained from patient. 14:44:17 ECG and BP/O2 sat monitors applied to patient. 14:44:24 H&P Date Dictated: 08/26/2017 Within 30 days and on chart.. 14:44:26 Pre-op teaching completed and patient verbalized understanding. 14:44:26 Pre-procedure instructions explained to patient. 14:44:28 Family unavailable. 14:44:30 Patient NPO since Midnight. 14:44:31 Is the patient allergic to Iodine/contrast media? No. 14:44:40 Is patient on blood thinner?Yes 14:44:43 ACC The patient was administered the following blood thiners within the last 24 hours: ACCPlavix 14:44:46 Patient diabetic? No. 14:44:49 Previous problem with sedation/anesthesia? No ? 14:44:51 Snore? Yes 14:44:52 Sleep apnea? Yes 14:44:53 Deviated septum? No 14:44:53 Opens mouth fully? Yes 14:44:55 Sticks out tongue? Yes 14:44:59 Airway obstruction? Yes COPD 14:45:03 Dentures? Yes OUT 14:45:07 Pre procedure: right dorsailis pedis pulse 1+ Palpable, but thready & weak; easily obliterated 14:45:08 Patient pain scale 0/10 ?. 14:45:14 IV patent on arrival in left forearm with 0.9% NaCl at [facility]. 14:45:16 Lab results completed and on chart. 14:45:19 Right groin area was prepped with chlora-prep and draped in sterile fashion 14:45:20 Alarms reviewed by R. N. 14:45:21 Sharps counted by scrub and verified by R.N. 14:45:26 Vital chart was started 14:48:59 Oxygen 4 l/min NC was administered by Nichole Rodriguez RN; used for procedure; 14:49:06 Lidocaine 2% 20ml vial added to field was administered by Dwayne Morales MD; for local anesthetic; 14:49:13 Heparin Flush Bag (1000units/500ml NS) 2 bags added to field was administered by Dwayne Morales MD; used for procedure; 14:51:49 Baseline sample Acquired. 14:51:59 Rhythm: atrial fibrillation 14:52:01 Full Disclosure recording started 14:52:31 ACIST Syringe (29086) opened to sterile field. 14:52:31 Bag Decanter () opened to sterile field. 14:52:32 Medline Cath Pack ([id number]) opened to sterile field. 14:52:32 DIAGNOSTIC WIRE .035 260cm J wire ([id number]) opened to sterile field. 14:52:33 ACIST Hand Control (62367) opened to sterile field. 14:52:34 ACIST Manifold (54918) opened to sterile field. 14:52:35 Tegaderm 4 x 4 (1626W) opened to sterile field. 14:52:35 PERCUTANEOUS ENTRY 19GA needle opened to sterile field. 14:52:46 INFLATOR Merit Rafik (EG3742) opened to sterile field. 14:52:59 FIELDER XT J 300cm guide wire ([id number]) opened to sterile field. 14:52:59 SHEATH Prelude 6Fr 0.035 (XOA-9K-81-035) opened to sterile field. 14:54:34 IV left forearm D/C'd due to infiltration. 15:00:58 IV started by Nichole Rodriguez RN inleft wrist with a 22 gauge IV catheter with 0.9% NaCl at O. 15:01:02 Physician arrived 15:01:03 --------ALL STOP TIME OUT------ 15:01:03 Final Timeout: patient, procedure, and site verified with staff and physician. All members of the team are in agreement. 15:01:06 Right groin site verified by team. 15:01:10 Physical assessment completed. ASA score P 3 - A patient with severe systemic disease as per Dwayne Morales MD. 15:01:12 Sedation plan: IV Moderate Sedation Medication:Versed, Fentanyl 15:01:34 GUIDE 6FR AR 2.0 SH catheter ([id number]) opened to sterile field. 15:02:25 Zero performed for pressure channel P1 15:02:30 Zero performed for pressure channel P1 15:03:38 0.9% NaCl 100 ml/hr I.V. was administered by Nichole Rodriguez RN; Per physician; 15:03:49 Versed 1 mg I.V. was administered by Nichole Rodriguez RN; for sedation; 15:03:55 Fentanyl 50 mcg I.V. was administered by Nichole Rodriguez RN; for sedation; 15:04:27 Procedure started. 15:04:29 Local anesthetic to right femoral artery with Lidocaine 2% by Dwayne Morales MD.INITIAL ACCESS ONLY 15:04:41 A 6 Fr Short sheath was inserted into the Right Femoral artery 15:05:21 6 Fr AR 2 SH guide catheter was inserted over the wire 15:07:34 RD wire advanced. 15:07:58 Heparin Bolus 4000 units I.V. was administered by Nichole Rodriguez RN; for anticoagulation; verified with dr morales 15:08:51 Wire advanced across lesion. 15:09:11 Inflate balloon Inflation number: 1 A EMERGE OTW 1.5 x 15 balloon ([id number]) was prepped and advanced across the Mid RCA, then inflated to 21 RADHA for 0:10 (min:sec). 15:09:35 Inflation number: 2 The EMERGE OTW 1.5 x 15 balloon ([id number]) was reinflated across the Mid RCA, to 21 RADHA for 0:10 (min:sec). 15:09:48 CHOICE PT Extra Support J 300cm guide wire ([id number]) opened to sterile field. 15:10:31 Wire removed. 15:10:40 CHOICE PT wire advanced. 15:10:55 Balloon removed over the wire. 15:11:52 Inflate balloon Inflation number: 3 A EUPHORA 2.5 x 30 Balloon ([id number]) was prepped and advanced across the Mid RCA, then inflated to 15 RADHA for 0:10 (min:sec). 15:12:02 Inflation number: 4 The EUPHORA 2.5 x 30 Balloon ([id number]) was reinflated across the Mid RCA, to 15 RADHA for 0:10 (min:sec). 15:12:19 Balloon removed over the wire. 15:13:41 Versed 1 mg I.V. was administered by Nichole Rodriguez RN; for sedation; 15:13:44 Fentanyl 50 mcg I.V. was administered by Nichole Rodriguez RN; for sedation; 15:15:05 WHISPER 300cm guide wire ([id number]) opened to sterile field. 15:15:34 WHISPER WIRE ADVANCED MARSHALL WIRE. 15:16:22 The JHON RX 2.5 x 38 stent ([id number]) was advanced then removed because of failure to cross lesion 15:18:22 Inflate balloon Inflation number: 1 A EUPHORA 3.0 x 15 Balloon ([id number]) was prepped and advanced across the Prox RCA, then inflated to 13 RADHA for 0:10 (min:sec). 15:18:33 Inflation number: 2 The EUPHORA 3.0 x 15 Balloon ([id number]) was reinflated across the Prox RCA, to 13 RADHA for 0:10 (min:sec). 15:18:40 Inflation number: 3 The EUPHORA 3.0 x 15 Balloon ([id number]) was reinflated across the Prox RCA, to 13 RADHA for 0:10 (min:sec). 15:19:10 Balloon removed over the wire. 15:20:47 WHISPER WIRE REMOVED. 15:20:50 Place stent Inflation Number: 5 A JHON RX 2.5 x 38 stent ([id number]) was prepped and advanced across the Mid RCA. The stent was deployed at 13 RADHA for 0:10 (min:sec). 15:21:22 Stent catheter was removed intact over wire. 15:23:12 Place stent Inflation Number: 4 A JHON RX 2.5 x 18 stent ([id number]) was prepped and advanced across the Prox RCA. The stent was deployed at 13 RADHA for 0:10 (min:sec). 15:23:54 Stent catheter was removed intact over wire. 15:23:55 Wire removed. 15:23:55 Guide catheter removed. 15:24:01 EXOSEAL 6Fr (EX600) opened to sterile field. 15:24:11 Sheath removed intact; hemostasis achieved with Exoseal to the Right Femoral artery. 15:24:12 Procedure ended.(Physican Out) 15:27:11 Fluoroscopy time 09.10 minutes. 15:27:15 Flurop Dose total: 974 15:27:15 Fluoroscopy dose: 974 mGy 15:27:18 Contrast amount:Isovue 370 93ml. 15:27:19 Sharps counted by scrub and verified by R.N. 15:27:21 Insertion/operative site no bleeding no hematoma. 15:27:24 Post-op/insertion site Right Femoral artery dressed using a 4 x 4 and Tegaderm. 15:27:27 Post right femoral artery:stable, soft, clean and dry 15:27:28 Post Procedure Pulses reassessed and unchanged 15:27:31 Post-procedure physical assessment completed. ASA score P 2 - A patient with mild systemic disease as per Dwayne Morales MD. 15:27:33 Post procedure rhythm: unchanged. 15:27:35 Estimated blood loss: 10 ml 15:27:37 Post procedure instruction explained to patient.Patient verbalizes understanding. 15:27:37 Patient needs reinforcement of post procedure teaching. 15:27:59 Procedure type changed to Cath procedure, Diagnostic procedure, Sedation Charges, Moderate Sedation up to 15 minutes, PCI procedure, Coronary Stent, Coronary Stent Initial 15:29:25 Procedure and supply charges have been captured, reviewed, submitted and are correct. 15:29:27 Procedure Complication : No complications 15::29 Vital chart was stopped 15::29 See physician's report for complete and final results. 15::38 Report given to ICU. 15:29:41 Patient transfered to ICU with Stretcher. 15:29:42 Procedure ended. 15:29:42 Full Disclosure recording stopped 15:29:46 End room use (Document Last) 15:36:52 FEMSTOP Gold ([id number]) opened to sterile field. 15:36:56 Femstop placed over the right femoral artery at 164 mmHg. Hemostasis achieved. Intervention Summary Intervention Notes Time ActionType Lesion and Equipment Used Action# Pressure Duration Attributes 15:09:11 Inflate Mid RCA EMERGE OTW 1.5 1 21 00:10 balloon x 15 balloon ([id number]) 15:09:35 Reinflate Mid RCA EMERGE OTW 1.5 2 21 00:10 balloon x 15 balloon ([id number]) 15:11:52 Inflate Mid RCA EUPHORA 2.5 x 3 15 00:10 balloon 30 Balloon ([id number]) 15:12:02 Reinflate Mid RCA EUPHORA 2.5 x 4 15 00:10 balloon 30 Balloon ([id number]) 15:16:22 Discard JHON RX 2.5 x Stent 38 stent ([id number]) 15:18:22 Inflate Prox RCA EUPHORA 3.0 x 1 13 00:10 balloon 15 Balloon ([id number]) 15:18:33 Reinflate Prox RCA EUPHORA 3.0 x 2 13 00:10 balloon 15 Balloon ([id number]) 15:18:40 Reinflate Prox RCA EUPHORA 3.0 x 3 13 00:10 balloon 15 Balloon ([id number]) 15:20:50 Place stent Mid RCA JHON RX 2.5 x 5 13 00:10 38 stent ([id number]) 15:23:12 Place stent Prox RCA JHON RX 2.5 x 4 13 00:10 18 stent ([id number]) Device Usage Item Name Manufacture Quantity Catalog Number Hospital Part Current Minimal Lot# / Charge Number Stock Stock Serial# Code ACIST Syringe Acist 1 28841 032777 500641 270380 20 (67601) Medical Systems Inc Bag Decanter Microtek 1 2001S 742068 32554 478763 5 () Medical Inc. Medline Cath Cardinal 1 [id number] 826327 69693 963954 5 Pack Health ([id number]) DIAGNOSTIC WIRE St [place] 1 253568 698026 752794 358512 30 .035 260cm J wire (497024) ACIST Hand Acist 1 45049 250162 615578 278423 5 Control (99941) [employer] Inc ACIST Manifold Acist 1 83764 730223 490061 604537 5 (52014) Medical Systems Inc Tegaderm 4 x 4 3M 1 1626W 956022 857369 366098 5 (1626W) PERCUTANEOUS Cook Medical 1 G40910 697353 610194 5 ENTRY 19GA needle INFLATOR Merit Merit 1 WF6842 323869 729125 135529 15 BasOpen Garden Medical ([id number]) FIELDER XT J Jane 1 [id number] 487322 225475 164399 5 300cm guide Vascular wire ([id number]) SHEATH Prelude Merit 1 LYS-9W-95-35 724593 5710752 395895 5 6Fr 0.035 Medical (EVR-1I-70-035) GUIDE 6FR AR Medtronic 1 [id number] 247093 42272 107792 1 2.0 SH catheter ([id number]) EMERGE OTW 1.5 Escalon 1 [id number] 943154 765067 203377 5 [id number] x 15 balloon Scientific ([id number]) CHOICE PT Extra Escalon 1 [id number] 361249 983393 466064 5 Support J 300cm Scientific guide wire (4792047P1) EUPHORA 2.5 x Medtronic 1 [id number] 152224 620800 506397 5 [id number] 30 Balloon ([id number]) WHISPER 300cm Jane 1 [id number] 808193 727568 995775 5 guide wire Vascular ([id number]) JHON RX 2.5 x Medtronic 1 [id number] 316371 2286380 286325 5 [id number] 38 stent ([id number]) EUPHORA 3.0 x Medtronic 1 [id number] 400149 233460 687500 5 [id number] 15 Balloon ([id number]) JHON RX 2.5 x Medtronic 1 [id number] 796554 0252179 907826 5 [id number] 18 stent ([id number]) EXOSEAL 6Fr Cardinal 1 EX600 639608 328224 889973 10 (EX600) Health FEMSTOP Gold St [place] 1 D55547 723905 433185 517295 5 ([id number]) Signature Audit [place] Stage Time Signature Unsigned Intra-Procedure 08/28/2017 Emanuel Crawford 3:37:32 PM RT(R) Signatures Monitor : Emanuel Crawford RT Signature : Date : Time : [place] [id number] [place] [address]
--- NOTE | ~2017-08-24 | OP ---
PATIENT NAME: JENNIFER BRODERICK MEDICAL RECORD: [id number] :31 LOCATION:D.ICU D.2306 ADMISSION DATE:08/24/17 SURGEON: JARETT BUTLER MD DATE OF OPERATION: 09/03/2017 PREOPERATIVE DIAGNOSES: 1. Need for IV access. 2. Chronic obstructive pulmonary disease. 3. Coronary artery disease status post stent. 4. Bilateral PEs. 5. Anticoagulated with heparin. 6. Respiratory failure, on ventilator. 7. Cardiopulmonary arrest, status post code blue. POSTOPERATIVE DIAGNOSES: 1. Need for IV access. 2. Chronic obstructive pulmonary disease. 3. Coronary artery disease status post stent. 4. Bilateral PEs. 5. Anticoagulated with heparin. 6. Respiratory failure, on ventilator. 7. Cardiopulmonary arrest, status post code blue. PROCEDURE: 1. Attempted right subclavian and right IJ central venous lines. 2. Right femoral central venous line placement. SURGEON: Jarett Butler MD REPORT OF PROCEDURE: The patient's right neck and chest were prepped and draped in sterile fashion. Multiple attempts were made to access the right subclavian vein with no sign of a vessel ever cannulated. Then, using ultrasound guidance, we attempted to find the patient's right internal jugular vein. I could see a very small vessel present near the carotid artery. On multiple attempts, I was never able to access the vein, but actually did penetrate the carotid artery one time. Eventually prepped the patient's right groin. Again with ultrasound guidance, I was not able to see much of the vein, but I was able to access the femoral vein. The guidewire was then advanced with ease. Over this wire, a dilator was placed followed by the triple lumen catheter. The catheter aspirated nonpulsatile dark blood and flushed easily in all 3 ports. This was sutured into place with 3-0 silk ties and dressed appropriately. COMPLICATIONS: None. CONDITION: Stable. ANESTHESIA: General endotracheal. BLOOD LOSS: Minimal. Procedure done at the bedside. TRANSINT:[id number] Voice Confirmation ID: [id number] DOCUMENT ID: [id number] OPERATIVE REPORT [id number] JENNIFER BRODERICK JARETT BUTLER MD at 1409 CC: [id number] DICTATION DATE: 09/03/172125 FRENCH TRANSLATOR: 09/04/17 0406 DIS IN 09/03/17 [facility] [address] [facility] [place] [address]
[2017-08-24 05:05] LABS: BASOPHILS 0.1 % (0-2); EOSINOPHILS 1.8 % (0-7); HEMATOCRIT 35.4 % (42.0-54.0); HEMOGLOBIN 10.3 g/dL (13.5-17.5); IMMATURE GRANULOCYTES 0.4 % (0-5); LYMPHOCYTES 28.7 % (15-50); MCH 23.6 pg (26.0-34.0); MCHC 29.1 g/dL (31.0-37.0); MEAN PLATELET VOLUME 9.4 fL (7.4-10.4); PLATELET COUNT 344 10x3/uL (130-400); RBC 4.37 10x6/uL (4.20-6.10); RDW 16.6 % (11.5-14.5); WBC 13.4 10x3/uL (4.8-10.8)
[2017-08-24 05:21] LABS: ALBUMIN 3.3 g/dL (3.4-5.0); ALKALINE PHOSPHATASE 83 U/L (46-116); ALT (SGPT) 17 U/L (10-68); BILIRUBIN - TOTAL 0.62 mg/dL (0.2-1.3); CALC OSMOLALITY 287 mosm/kg (275-300); CALCIUM 8.8 mg/dL (8.5-10.1); CARBON DIOXIDE 27.1 mmol/L (21.0-32.0); CHLORIDE - SERUM 104 mmol/L (98-107); CREATININE - SERUM 1.1 mg/dL (0.6-1.3); GLUCOSE 205 mg/dL (74-106); PROTEIN - SERUM 7.5 g/dL (6.4-8.2); SODIUM 140 mmol/L (136-145); UREA NITROGEN 22 mg/dL (7-18); eGFR NON AFRICAN AMERICAN 68 mL/min (90-120)
[2017-08-24 05:36] LABS: CKMB 1.9 U/L (0.0-3.6); CREATINE KINASE 43 UL (21-232); PRO BNP 724 pg/mL (0-450); TROPONIN-I 0.057 ng/mL (0.000-0.060)
[2017-08-24 08:23] LABS: CKMB 4.6 U/L (0.0-3.6); CREATINE KINASE 66 UL (21-232)
[2017-08-24 08:31] LABS: TROPONIN-I 0.425 ng/mL (0.000-0.060)
[2017-08-24] MEDS ORDERED: PROVENTIL HFA6.7 GM INH (10:23)
[2017-08-24] MEDS ORDERED: ELIQUIS5 MG PO (10:23)
[2017-08-24] MEDS ORDERED: SYMBICORT 80-10.2 GM INH (10:24)
[2017-08-24] MEDS ORDERED: ARTIFICIAL TEAR15 ML EACH EYE (10:24)
[2017-08-24] MEDS ORDERED: LASIX20 MG PO (10:26)
[2017-08-24] MEDS ORDERED: MUCUS RELIEF400 MG PO (10:27)
[2017-08-24] MEDS ORDERED: HYDROCODONE-APA1 TAB PO (10:27)
[2017-08-24] MEDS ORDERED: CLARITIN 10 MG10 MG PO (10:29)
[2017-08-24] MEDS ORDERED: COZAAR25 MG PO (10:29)
[2017-08-24] MEDS ORDERED: PRAVACHOL40 MG PO (10:30)
[2017-08-24] MEDS ORDERED: TERAZOSIN HCL2 MG PO (10:30)
[2017-08-24] MEDS ORDERED: OMEPRAZOLE20 M1 PO (10:30)
[2017-08-24 13:59] LABS: CKMB 11.5 U/L (0.0-3.6); CREATINE KINASE 139 UL (21-232)
[2017-08-24 20:13] LABS: CKMB 10.8 U/L (0.0-3.6); CREATINE KINASE 144 UL (21-232)
[2017-08-24 20:26] LABS: TROPONIN-I 2.003 ng/mL (0.000-0.060)
[2017-08-25] VITALS (26 sets, daily range): BP systolic 85–130; BP diastolic 51–78; Ht 165.1 cm; Wt 74.6 kg
[2017-08-25 05:04] LABS: BASOPHILS 0 % (0-2); EOSINOPHILS 0 % (0-7); HEMATOCRIT 30.3 % (42.0-54.0); HEMOGLOBIN 8.7 g/dL (13.5-17.5); IMMATURE GRANULOCYTES 0.4 % (0-5); LYMPHOCYTES 5.6 % (15-50); MCHC 28.7 g/dL (31.0-37.0); MCV 79.9 fL (80.0-100.0); MEAN PLATELET VOLUME 9.6 fL (7.4-10.4); MONOCYTES 4.2 % (2-11); NEUTROPHILS 89.8 % (40-80); RBC 3.79 10x6/uL (4.20-6.10); RDW 16.6 % (11.5-14.5)
[2017-08-25 05:08] LABS: PLATELET COUNT 244 10x3/uL (130-400); WBC 8.3 10x3/uL (4.8-10.8)
[2017-08-25 05:13] LABS: INR 1.32 (0.85-1.17); PROTIME 15.9 SECONDS (11.6-15.0)
[2017-08-25 05:27] LABS: ANION GAP 15.5 mmol/L (8-16); BILIRUBIN - TOTAL 0.5 mg/dL (0.2-1.3); CARBON DIOXIDE 26.9 mmol/L (21.0-32.0); CREATININE - SERUM 1.2 mg/dL (0.6-1.3); MAGNESIUM - SERUM 2.2 mg/dL (1.8-2.4); POTASSIUM - SERUM 4.4 mmol/L (3.5-5.1); PROTEIN - SERUM 6.8 g/dL (6.4-8.2)
[2017-08-26] VITALS (27 sets, daily range): BP systolic 88–142; BP diastolic 53–80
[2017-08-26 04:38] LABS: BASOPHILS 0 % (0-2); EOSINOPHILS 0 % (0-7); IMMATURE GRANULOCYTES 0.3 % (0-5); LYMPHOCYTES 3.3 % (15-50); MCH 25.4 pg (26.0-34.0); MCHC 30.6 g/dL (31.0-37.0); MEAN PLATELET VOLUME 9.7 fL (7.4-10.4); MONOCYTES 2.9 % (2-11); NEUTROPHILS 93.5 % (40-80); PLATELET COUNT 241 10x3/uL (130-400); RDW 17.1 % (11.5-14.5)
[2017-08-26 04:40] LABS: APTT 26.6 SECONDS (22.8-39.4); INR 1.15 (0.85-1.17); PROTIME 14.3 SECONDS (11.6-15.0)
[2017-08-26 04:48] LABS: ALBUMIN 3.3 g/dL (3.4-5.0); ANION GAP 15.6 mmol/L (8-16); BILIRUBIN - TOTAL 0.79 mg/dL (0.2-1.3); CALCIUM 9.3 mg/dL (8.5-10.1); CARBON DIOXIDE 29.4 mmol/L (21.0-32.0); MAGNESIUM - SERUM 2.3 mg/dL (1.8-2.4); PHOSPHOROUS 4.4 mg/dL (2.5-4.9); PROTEIN - SERUM 7.5 g/dL (6.4-8.2)
[2017-08-26 04:52] LABS: HEMATOCRIT 40.2 % (42.0-54.0); HEMOGLOBIN 12.3 g/dL (13.5-17.5); MCV 82.9 fL (80.0-100.0); RBC 4.85 10x6/uL (4.20-6.10)
[2017-08-26 04:55] LABS: CREATININE - SERUM 1.6 mg/dL (0.6-1.3)
[2017-08-27] VITALS (26 sets, daily range): BP systolic 92–136; BP diastolic 61–92
[2017-08-27 04:12] LABS: BASOPHILS 0 % (0-2); EOSINOPHILS 0 % (0-7); HEMATOCRIT 41.4 % (42.0-54.0); HEMOGLOBIN 12.6 g/dL (13.5-17.5); IMMATURE GRANULOCYTES 0.4 % (0-5); LYMPHOCYTES 2.6 % (15-50); MCH 25.4 pg (26.0-34.0); MCHC 30.4 g/dL (31.0-37.0); MCV 83.5 fL (80.0-100.0); MEAN PLATELET VOLUME 9.2 fL (7.4-10.4); MONOCYTES 3.5 % (2-11); NEUTROPHILS 93.5 % (40-80); PLATELET COUNT 225 10x3/uL (130-400); RBC 4.96 10x6/uL (4.20-6.10); RDW 17.6 % (11.5-14.5); WBC 11.3 10x3/uL (4.8-10.8)
[2017-08-27 04:24] LABS: CALCIUM 8.8 mg/dL (8.5-10.1); CARBON DIOXIDE 31.4 mmol/L (21.0-32.0); CREATININE - SERUM 1.6 mg/dL (0.6-1.3); POTASSIUM - SERUM 3.4 mmol/L (3.5-5.1)
[2017-08-28] VITALS (25 sets, daily range): BP systolic 102–144; BP diastolic 61–96
[2017-08-28 04:13] LABS: BASOPHILS 0 % (0-2); EOSINOPHILS 0 % (0-7); HEMATOCRIT 43.7 % (42.0-54.0); HEMOGLOBIN 13.4 g/dL (13.5-17.5); IMMATURE GRANULOCYTES 0.3 % (0-5); LYMPHOCYTES 3.4 % (15-50); MCH 25.7 pg (26.0-34.0); MCHC 30.7 g/dL (31.0-37.0); MCV 83.7 fL (80.0-100.0); MEAN PLATELET VOLUME 9.9 fL (7.4-10.4); MONOCYTES 3.6 % (2-11); NEUTROPHILS 92.7 % (40-80); PLATELET COUNT 238 10x3/uL (130-400); RBC 5.22 10x6/uL (4.20-6.10); WBC 11.8 10x3/uL (4.8-10.8)
[2017-08-28 04:25] LABS: ANION GAP 9.6 mmol/L (8-16); CALCIUM 9.2 mg/dL (8.5-10.1); CARBON DIOXIDE 36.2 mmol/L (21.0-32.0); CREATININE - SERUM 1.6 mg/dL (0.6-1.3); POTASSIUM - SERUM 3.8 mmol/L (3.5-5.1)
[2017-08-29] VITALS (24 sets, daily range): BP systolic 95–151; BP diastolic 65–116
[2017-08-29 05:38] LABS: BASOPHILS 0 % (0-2); EOSINOPHILS 0 % (0-7); HEMATOCRIT 43.8 % (42.0-54.0); HEMOGLOBIN 13.2 g/dL (13.5-17.5); IMMATURE GRANULOCYTES 0.2 % (0-5); LYMPHOCYTES 4.7 % (15-50); MCH 25.1 pg (26.0-34.0); MCHC 30.1 g/dL (31.0-37.0); MCV 83.3 fL (80.0-100.0); MEAN PLATELET VOLUME 9.6 fL (7.4-10.4); MONOCYTES 5.6 % (2-11); NEUTROPHILS 89.5 % (40-80); PLATELET COUNT 237 10x3/uL (130-400); RBC 5.26 10x6/uL (4.20-6.10); RDW 18.5 % (11.5-14.5); WBC 9.6 10x3/uL (4.8-10.8)
[2017-08-29 06:33] LABS: ALBUMIN 3.3 g/dL (3.4-5.0); ANION GAP 10.8 mmol/L (8-16); BILIRUBIN - TOTAL 0.7 mg/dL (0.2-1.3); CALCIUM 9.2 mg/dL (8.5-10.1); CARBON DIOXIDE 34.7 mmol/L (21.0-32.0); CREATININE - SERUM 1.6 mg/dL (0.6-1.3); POTASSIUM - SERUM 3.5 mmol/L (3.5-5.1); PROTEIN - SERUM 7.1 g/dL (6.4-8.2)
[2017-08-30] VITALS (21 sets, daily range): BP systolic 90–166; BP diastolic 64–104
[2017-08-30 04:27] LABS: BASOPHILS 0 % (0-2); EOSINOPHILS 0 % (0-7); HEMATOCRIT 47.1 % (42.0-54.0); HEMOGLOBIN 14.5 g/dL (13.5-17.5); IMMATURE GRANULOCYTES 0.5 % (0-5); LYMPHOCYTES 3.1 % (15-50); MCH 25.7 pg (26.0-34.0); MCHC 30.8 g/dL (31.0-37.0); MCV 83.5 fL (80.0-100.0); MEAN PLATELET VOLUME 9.8 fL (7.4-10.4); MONOCYTES 7.8 % (2-11); NEUTROPHILS 88.6 % (40-80); PLATELET COUNT 245 10x3/uL (130-400); RBC 5.64 10x6/uL (4.20-6.10); RDW 18.5 % (11.5-14.5)
[2017-08-30 04:28] LABS: WBC 13.4 10x3/uL (4.8-10.8)
[2017-08-30 04:59] LABS: ANION GAP 10.2 mmol/L (8-16); CALCIUM 9.8 mg/dL (8.5-10.1); CARBON DIOXIDE 38.7 mmol/L (21.0-32.0); CREATININE - SERUM 1.8 mg/dL (0.6-1.3); POTASSIUM - SERUM 3.9 mmol/L (3.5-5.1)
[2017-08-31] VITALS (24 sets, daily range): BP systolic 95–158; BP diastolic 60–96
[2017-08-31 05:07] LABS: BASOPHILS 0 % (0-2); EOSINOPHILS 0 % (0-7); HEMATOCRIT 49.7 % (42.0-54.0); HEMOGLOBIN 15.2 g/dL (13.5-17.5); IMMATURE GRANULOCYTES 0.6 % (0-5); MCH 25.9 pg (26.0-34.0); MCHC 30.6 g/dL (31.0-37.0); MCV 84.7 fL (80.0-100.0); MEAN PLATELET VOLUME 10.4 fL (7.4-10.4); NEUTROPHILS 90.4 % (40-80); PLATELET COUNT 238 10x3/uL (130-400); RBC 5.87 10x6/uL (4.20-6.10); WBC 14.3 10x3/uL (4.8-10.8)
[2017-08-31 05:46] LABS: ANION GAP 13.8 mmol/L (8-16); CALCIUM 9.7 mg/dL (8.5-10.1); CARBON DIOXIDE 39.4 mmol/L (21.0-32.0); CREATININE - SERUM 1.8 mg/dL (0.6-1.3)
[2017-08-31 05:47] LABS: POTASSIUM - SERUM 3.2 mmol/L (3.5-5.1)
[2017-09-01] VITALS (15 sets, daily range): BP systolic 94–146; BP diastolic 26–94
[2017-09-01 05:13] LABS: ALBUMIN 3.4 g/dL (3.4-5.0); ANION GAP 10.2 mmol/L (8-16); BILIRUBIN - TOTAL 1.24 mg/dL (0.2-1.3); PHOSPHOROUS 5.8 mg/dL (2.5-4.9); PROTEIN - SERUM 7.6 g/dL (6.4-8.2)
[2017-09-01 05:27] LABS: CARBON DIOXIDE 44.8 mmol/L (21.0-32.0); MAGNESIUM - SERUM 3.7 mg/dL (1.8-2.4)
[2017-09-02] VITALS (14 sets, daily range): BP systolic 79–136; BP diastolic 48–77
[2017-09-02 04:19] LABS: BASOPHILS 0.1 % (0-2); EOSINOPHILS 0 % (0-7); HEMATOCRIT 48.5 % (42.0-54.0); HEMOGLOBIN 14.8 g/dL (13.5-17.5); IMMATURE GRANULOCYTES 0.4 % (0-5); LYMPHOCYTES 2.9 % (15-50); MCH 25.8 pg (26.0-34.0); MCHC 30.5 g/dL (31.0-37.0); MCV 84.5 fL (80.0-100.0); MEAN PLATELET VOLUME 10.2 fL (7.4-10.4); MONOCYTES 4.6 % (2-11); RBC 5.74 10x6/uL (4.20-6.10); RDW 18.8 % (11.5-14.5); WBC 17.7 10x3/uL (4.8-10.8)
[2017-09-02 04:38] LABS: PLATELET COUNT 171 10x3/uL (130-400)
[2017-09-02 04:42] LABS: ALBUMIN 2.7 g/dL (3.4-5.0); BILIRUBIN - TOTAL 0.97 mg/dL (0.2-1.3); CALCIUM 9.1 mg/dL (8.5-10.1); PHOSPHOROUS 7.2 mg/dL (2.5-4.9); PROTEIN - SERUM 6.3 g/dL (6.4-8.2)
[2017-09-02 04:50] LABS: ANION GAP 10.1 mmol/L (8-16); CREATININE - SERUM 2.9 mg/dL (0.6-1.3); MAGNESIUM - SERUM 3.5 mg/dL (1.8-2.4); POTASSIUM - SERUM 3.8 mmol/L (3.5-5.1)
[2017-09-02 04:51] LABS: CARBON DIOXIDE 40.7 mmol/L (21.0-32.0)
[2017-09-02 14:41] LABS: CKMB 1.8 U/L (0.0-3.6); CREATINE KINASE 84 UL (21-232)
[2017-09-02 14:46] LABS: TROPONIN-I 0.138 ng/mL (0.000-0.060)
[2017-09-03] VITALS (19 sets, daily range): BP systolic 75–132; BP diastolic 39–80
[2017-09-03 04:13] LABS: BASOPHILS 0 % (0-2); EOSINOPHILS 0 % (0-7); HEMATOCRIT 47.5 % (42.0-54.0); HEMOGLOBIN 14.6 g/dL (13.5-17.5); IMMATURE GRANULOCYTES 0.3 % (0-5); LYMPHOCYTES 2.5 % (15-50); MCH 25.8 pg (26.0-34.0); MCHC 30.7 g/dL (31.0-37.0); MCV 84.1 fL (80.0-100.0); MEAN PLATELET VOLUME 10.2 fL (7.4-10.4); MONOCYTES 6.6 % (2-11); NEUTROPHILS 90.6 % (40-80); PLATELET COUNT 125 10x3/uL (130-400); RBC 5.65 10x6/uL (4.20-6.10); RDW 18.7 % (11.5-14.5); WBC 22.4 10x3/uL (4.8-10.8)
[2017-09-03 04:42] LABS: ALBUMIN 2.5 g/dL (3.4-5.0); ANION GAP 8.2 mmol/L (8-16); BILIRUBIN - TOTAL 1.2 mg/dL (0.2-1.3); CALCIUM 8.8 mg/dL (8.5-10.1); CARBON DIOXIDE 38.6 mmol/L (21.0-32.0); CREATININE - SERUM 2.7 mg/dL (0.6-1.3); MAGNESIUM - SERUM 3.2 mg/dL (1.8-2.4); PHOSPHOROUS 6.4 mg/dL (2.5-4.9); POTASSIUM - SERUM 3.8 mmol/L (3.5-5.1); PROTEIN - SERUM 6.1 g/dL (6.4-8.2)
[2017-09-03 05:00] LABS: TROPONIN-I 0.079 ng/mL (0.000-0.060)
[2017-09-03 19:06] LABS: HEMATOCRIT 43.5 % (42.0-54.0); HEMOGLOBIN 13.4 g/dL (13.5-17.5); MCH 25.8 pg (26.0-34.0); MCHC 30.8 g/dL (31.0-37.0); MCV 83.7 fL (80.0-100.0); MEAN PLATELET VOLUME 10.8 fL (7.4-10.4); PLATELET COUNT 125 10x3/uL (130-400); RDW 18.9 % (11.5-14.5); WBC 29.4 10x3/uL (4.8-10.8)
[2017-09-03 19:10] LABS: APTT 33.8 SECONDS (22.8-39.4); INR 1.57 (0.85-1.17); PROTIME 18.3 SECONDS (11.6-15.0)
[2017-09-03 19:43] LABS: LYMPHOCYTES 7 % (15-50); MONOCYTES 9 % (2-11); NEUTROPHILS 83 % (40-80)
[2017-09-03 19:44] LABS: POIKILOCYTOSIS 1+; TARGET CELLS OCC
[2017-09-03 19:49] LABS: PLATELET ESTIMATE NORMAL
== END 2017-09-03 23:44 | DRG 246 ==
LOC: D.ER 04:23 → D.M2 06:54 → D.ICU 06:54 → D.EDHOLD 06:54 → D.ICU 08:04 → D.M2 09-01 16:20 → D.ICU 09-02 13:15
PROVIDERS: Family Medicine; Internal Medicine Interventional Cardiology; Internal Medicine Pulmonary Disease
PROC: 5A09457 Assistance with Respiratory Ventilation, 24-96 Consecutive Hours, Continuous Positive Airway Pressure (ICD-10-PCS; 2017-08-24)
PROC: B2151ZZ Fluoroscopy of Left Heart using Low Osmolar Contrast (ICD-10-PCS; 2017-08-26)
PROC: 4A023N7 Measurement of Cardiac Sampling and Pressure, Left Heart, Percutaneous Approach (ICD-10-PCS; 2017-08-26)
PROC: 027034Z Dilation of Coronary Artery, One Artery with Drug-eluting Intraluminal Device, Percutaneous Approach (ICD-10-PCS; principal; 2017-08-26 11:15)
PROC: B2111ZZ Fluoroscopy of Multiple Coronary Arteries using Low Osmolar Contrast (ICD-10-PCS; 2017-08-26 11:15)
PROC: 027034Z Dilation of Coronary Artery, One Artery with Drug-eluting Intraluminal Device, Percutaneous Approach (ICD-10-PCS; 2017-08-28)
PROC: 5A09357 Assistance with Respiratory Ventilation, Less than 24 Consecutive Hours, Continuous Positive Airway Pressure (ICD-10-PCS; 2017-09-02)
PROC: 06HY33Z Insertion of Infusion Device into Lower Vein, Percutaneous Approach (ICD-10-PCS; 2017-09-03)
PROC: 0BH17EZ Insertion of Endotracheal Airway into Trachea, Via Natural or Artificial Opening (ICD-10-PCS; 2017-09-03)
PROC: 5A12012 Performance of Cardiac Output, Single, Manual (ICD-10-PCS; 2017-09-03)
PROC: 5A1935Z Respiratory Ventilation, Less than 24 Consecutive Hours (ICD-10-PCS; 2017-09-03)
DX: I21.4 Non-ST elevation (NSTEMI) myocardial infarction (principal); J96.21 Acute and chronic respiratory failure with hypoxia; J18.9 Pneumonia, unspecified organism; J96.22 Acute and chronic respiratory failure with hypercapnia; I50.23 Acute on chronic systolic (congestive) heart failure; I26.99 Other pulmonary embolism without acute cor pulmonale; J44.1 Chronic obstructive pulmonary disease with (acute) exacerbation; I42.9 Cardiomyopathy, unspecified; J81.1 Chronic pulmonary edema; E87.2 Acidosis; J98.11 Atelectasis; I48.92 Unspecified atrial flutter; N17.9 Acute kidney failure, unspecified; E87.0 Hyperosmolality and hypernatremia; I13.0 Hypertensive heart and chronic kidney disease with heart failure and stage 1 through stage 4 chronic kidney disease, or unspecified chronic kidney disease; I25.10 Atherosclerotic heart disease of native coronary artery without angina pectoris; G47.33 Obstructive sleep apnea (adult) (pediatric); I27.20 Pulmonary hypertension, unspecified; R14.0 Abdominal distension (gaseous); K59.00 Constipation, unspecified; R33.9 Retention of urine, unspecified; I46.9 Cardiac arrest, cause unspecified; I34.0 Nonrheumatic mitral (valve) insufficiency; I95.9 Hypotension, unspecified; Z79.01 Long term (current) use of anticoagulants; N18.9 Chronic kidney disease, unspecified; E87.6 Hypokalemia; R53.81 Other malaise